=== PATIENT | male | born 1960 | race Caucasian/White ===

== ENCOUNTER 2021-12-06 17:58 | Inpatient (IN) | payer OTHER, SELFPAY ==
[2021-12-06 18:20] VITALS: BP 119/69; PULSE 94; RESP 16; TEMP 36.7; O2SAT 96
[2021-12-06] MEDS: traZODone HCL 50 MG TABLET PO (20:40)
[2021-12-06] MEDS: hydrOXYzine HCL 25 MG TABLET PO (20:40)
--- NOTE | 2021-12-07 03:02 | PC.NURSE ---
Hospitalist Colin texted at 0303 this morning for H&P consult.
--- NOTE | 2021-12-07 03:20 | PC.ADMIT ---
Pt is a 60 yo male admitted to the unit after referral from [facility] [facility] [facility] and transferred from [facility]. Pt arrived on unit at 1810 yesterday, 12/06/2021. Legal status: CV. Pt has hearing deficit and wears hearing aids. Pt current medical issue is DM type 2. Pt denies other medical issues. Pt is sober of ETOH since 09/15/2021. Denies any other substance use/abuse. Utox is negative for any substances. Denies smoking hx. States he is not a smoker. Pt states that he went to [facility] for Section 35 commitment for substance abuse tx for ETOH for 68 days. Upon discharge from there on 12/02/21 and admission [address] [facility], pt reported increased anxiety and panic d/t persistent SI to overdose on medications, stating I'd rather be than to feel this way i.e., depressed. Pt was then transferred to [facility] and evaluated by [facility] for admission. Pt did not want to go through the admission process so very little comes directly from pt, most was derived from crisis assessment. Pt presents as disheveled and slightly irritable, wanting to go to sleep but did comply with vitals and signed release of information forms. Provider clinical education manager Radha Tyler notified and orders obtained. Pt placed on 15 minute safety checks and contracts for safety on unit.
[2021-12-07 07:58] LABS: Estimated Average Glucose 203 mg/dL; Hemoglobin A1c % 8.7 %
[2021-12-07 08:08] LABS: Alanine Aminotransferase 29 U/L (0-40); Albumin Level 3.9 g/dL (3.5-5.0); Alkaline Phosphatase 118 U/L (39-117); Anion Gap 15 (12-20); Aspartate Amino Transferase 20 U/L (5-37); Bilirubin Total 0.6 mg/dL (0.0-1.0); Blood Urea Nitrogen 19 mg/dL (9-16); Calcium 9.2 mg/dL (8.4-10.2); Carbon Dioxide 24 mmol/L (22-29); Chloride 105 mmol/L (96-108); Cholesterol 177 mg/dL; Estimated Glomerular Filt Rate > 60; Glucose Fasting 205 mg/dL (60-99); HDL Cholesterol 41 mg/dL; LDL Cholesterol Calculated 110 mg/dl; Potassium 4.5 mmol/L (3.3-5.1); Sodium 139 mmol/L (135-145); Total Protein 6.6 g/dL (6.5-8.0); Triglycerides 131 mg/dL
[2021-12-07 08:19] LABS: Thyroid Stimulating Hormone 1.31 uIU/mL (0.32-4.0)
--- NOTE | 2021-12-07 08:22 | HO.PSYADMNOT ---
HPI Date of Service: 12/07/21 Chief Complaint: SI Sources of Information: patient interviewed, chart reviewed and crisis/core team assessment reviewed HPI Subjective Notes: Bedoya Warning and Conditional Voluntary Narrative: Mr. Peter is a 60 year-old male with hx of alcohol dependence, MDD, who self presented to [facility] from [facility]/respite unit from [facility] reporting suicidal ideation with plan to OD on his medications. Mr. Peter was recently sectioned 35 at [facility] and discharge from this facility on 12/02/2021 after 68 days. He was stepped down to [facility] and after being there for few hours, pt reports he had a panic attack. He was sent to [facility] respite where he continued to endorse suicidal ideation with plan to OD. Utox was negative. BAL neg. On the unit, pt presents somewhat irritable and tired. He reports [facility] has too many residents and is a very small place. He reports not feeling comfortable there. He reports he has not relapsed since he was discharge. He endorses feeling depressed, hopeless, anhedonia. He has not had episodes of what he calls panic attacks which he describes as palpitation, SOB, intense anxious mood. He does report overall anxious mood. He continues to endorse passive suicidal ideation. He reports he was not feeling suicidal while at [facility]. He reports this happened after he was discharged and brought to [facility]. He denies hx of VH/AH. He reports he has been on paxil for some years and thought it worked well for him. He denies previous suicide attempts and states this is the closest I've come to suicide attempt. He reports holding his own medications and contemplating overdose. He reports sleep is good with trazodone. Past Psychiatric History: Inpatient: 09/18/21 [facility], 08/21/21 [facility]; 04/2021 [facility] OP: none Suicide attempts: denies Past medication trials: paxil, clonidine, buspar, gabapentin Medical Evaluation Reviewed: Yes [facility] Medical History (Updated 12/08/21 @ 09:11 by Radha Tyler) Diabetes mellitus, type 2 H/O: HTN (hypertension) Surgical History (Updated 12/07/21 @ 13:25 by Arin Herbert NP) H/O hernia repair Diagnostics Vital Signs (24Hr): Vital Signs - 24 hr 12/06/21 18:20 Temperature 98.1 F Pulse Rate 94 Respiratory Rate 16 Blood Pressure 119/69 Pulse Oximetry 96 Oxygen Delivery Method Room Air Labs Results: 12/07/21 07:16 Labs: Laboratory Results - last 48 hr 12/07/21 12/07/21 07:16 07:16 Sodium 139 Potassium 4.5 Chloride 105 Carbon Dioxide 24 Anion Gap 15 BUN 19 H Creatinine 0.77 Estim Creat Clear Calc TNP Estimated GFR > 60 Fasting Glucose 205 H Estimat Average Glucose 203 Hemoglobin A1c % 8.7 Calcium 9.2 Total Bilirubin 0.6 AST 20 ALT 29 Alkaline Phosphatase 118 H Total Protein 6.6 Albumin 3.9 Triglycerides 131 Cholesterol 177 LDL Cholesterol, Calc 110 HDL Cholesterol 41 TSH 1.31 Meds/Allergies Meds Home Medications Medication Instructions Recorded Confirmed Type trazodone 150 mg tablet 150 mg PO BEDTIME 12/06/21 12/07/21 History trazodone 50 mg tablet 50 mg PO BEDTIME PRN Insomnia 12/06/21 12/07/21 History buspirone 30 mg tablet 30 mg PO BID 12/07/21 12/07/21 History clonidine HCl 0.1 mg tablet 0.1 mg PO BID 12/07/21 12/07/21 History ferrous sulfate 1 tab PO BID 12/07/21 12/07/21 History folic acid 1 mg tablet 1 mg PO DAILY 12/07/21 12/07/21 History gabapentin 300 mg PO BID 12/07/21 12/07/21 History hydroxyzine HCl 50 mg tablet 50 mg PO BEDTIME 12/07/21 12/07/21 History ibuprofen 400 mg tablet 400 mg PO Q8H PRN Pain, Moderate 12/07/21 12/07/21 History insulin detemir U-100 100 unit/mL 50 unit subcut BEDTIME 12/07/21 12/07/21 History subcutaneous solution insulin lispro 100 unit/mL 2 - 10 sliding scale dose subcut 12/07/21 12/07/21 History subcutaneous solution [facility] lisinopril 10 mg tablet 10 mg PO DAILY 12/07/21 12/07/21 History loratadine 10 mg capsule 10 mg PO DAILY 12/07/21 12/07/21 History lorazepam 1 mg tablet 1 mg PO TID PRN Anxiety 12/07/21 12/07/21 History metformin 500 mg tablet,extended 2,000 mg PO DAILY 12/07/21 12/07/21 History release 24 hr multivitamin 1 tab PO DAILY 12/07/21 12/07/21 History paroxetine HCl 40 mg PO DAILY 12/07/21 12/07/21 History Allergies Allergies Allergy/AdvReac Type Severity Reaction Status Date / Time dextromethorphan Allergy Unknown Unknown Verified 12/06/21 18:03 Mental Status Exam Mental Status Exam Narrative: Appearance: wearing hospital gown, fair hygiene in NAD Behavior:cooperative but somewhat irritable psychomotor: no agitation or retardation noted Speech:clear, normal rate/rhythm/volume, spontaneous Thought process:linear Thought content: no signs of delusions/psychosis, hopeless, irritable Mood: anxious Affect: irritable SI:passive HI:none VH/AH:none Delusions:none Insight/judgment:fair x 2. Memory/cog: alert, oriented x 3. grossly intact to conversational testing but not formally tested. Assessment & Plan Assessment & Plan (1) MDD (major depressive disorder), recurrent severe, without psychosis: Status: Acute Code(s): F33.2 - Major depressive disorder, recurrent severe without psychotic features (2) Alcohol use disorder, severe, in early remission: Status: Acute Code(s): F10.21 - Alcohol dependence, in remission Plan Mr. Peter is a 60 year-old male with hx of MDD, alcohol use disorder in early remission. Recently discharged on 12/02/2021 from [facility] after 68 days at [facility]. Stepped down to sober house, had panic atttack, which he reports he didn't feel comfortable at this place. He reports suicidal ideation with plan to OD, which he states is close to suicide attempt he has had. He has not relapsed since he was discharged from [facility]. Pt continues to endorse depression, anhedonia, anxious mood, passive SI. We discussed risks, benefits and alternative treatment options. He agrees to continue paxil, as he states it was helpful for him in past, rather than switching at this time to another antidepressant. He agrees to start abilify to boost antidepressant effect. continue clonidine, buspar for anxious mood. PLAN 1. Admit to M3, CV, 15 minutes checks for safety 2. continue paxil 40mg po daily, may titrate 3. start abilify 2mg po qhs. 4. continue gabapenting, clonidine, buspar. 5. obtain collateral information 6. aftercare planning. Patient educated on: diagnosis, medication risk/benefits and substance abuse Reason for continued inpatient stay Substantial Risk for: harm to self
[2021-12-07 09:00] VITALS: BP 118/82; PULSE 102; RESP 16; TEMP 36.8; O2SAT 97
[2021-12-07 09:38] LABS: Glucose, Whole Blood 216 mg/dL (60-115)
[2021-12-07 13:11] LABS: Glucose, Whole Blood 205 mg/dL (60-115)
--- NOTE | 2021-12-07 13:19 | HO.PM.IMCN ---
History of Present Illness Data of Consult Service Date: 12/07/21 Requesting physician: Radha Tyler Primary Care Provider: Jason Cohen MD Review of Systems Review of Systems: Denies any recent fever chills or decrease in appetite respiratory denies any shortness of breath coverage production cardiovascular denies chest pain gastrointestinal denies any dysphagia abdominal pain nausea vomiting or diarrhea genitourinary denies any dysuria frequency or hematuria musculoskeletal denies any joint pain or swelling neuropsych denies any weakness or seizures all other systems reviewed are negative [facility] Medical History (Updated 12/07/21 @ 13:28 by Arin Herbert NP) Diabetes mellitus, type 2 H/O: HTN (hypertension) Pertinent family history: No cardiac disease Surgical History (Updated 12/07/21 @ 13:25 by Arin Herbert NP) H/O hernia repair Social History Household Members: Other Household Members Other:: Mother but not allowed back. Housing: Homeless Do you presently have visiting nurse or other home services: No Patient Tobacco Use Status: Never used Tobacco Use of substances other than those prescribed or required for medical reasons: No Currently Displaying Signs/Symptoms of Drug Intoxication Withdrawal: No Any prior treatment program specific to substance use: Yes (2; 06/2021 [facility] and 10/18 - 12/18 [facility]) Have you been hit, kicked, punched, or otherwise hurt by someone within the past year? If so, by whom?: No Do you feel safe in your current relationship?: No Current Relationship Is there a partner from a previous relationship who is making you feel unsafe now?: No Are you made to feel afraid or neglected: No Advance Directives: No Advance Directives Information Provided: No Advance Directives on File: No Do you have thoughts of harming others: None Do you have a plan to hurt others: No Plan Recently lost weight without trying: Unsure How much weight loss: Unsure Nutrition Risks: Diabetes new onset/Uncontrolled Meds Allergies Allergy/AdvReac Type Severity Reaction Status Date / Time dextromethorphan Allergy Unknown Unknown Verified 12/06/21 18:03 Active Medications: Current Medications Acetaminophen (Acetaminophen 325 Mg Tablet) 650 mg PO Q6H PRN PRN Reason: Headache/Pain Mild Scale (1-3) Al Hydroxide/Mg Hydroxide (Magnesium Hydrox/Alum Hydrox 30 Ml Oral.Susp) 30 ml PO Q6H PRN PRN Reason: Heartburn/Nausea Hydroxyzine HCl (Hydroxyzine Hcl 25 Mg Tablet) 25 mg PO Q6H PRN PRN Reason: Anxiety Last Admin: 12/06/21 20:40 Dose: 25 mg Magnesium Hydroxide (Milk Of Magnesia 30 Ml Oral.Susp) 30 ml PO DAILY PRN PRN Reason: Constipation Trazodone HCl (Trazodone Hcl 50 Mg Tablet) 50 mg PO BEDTIME PRN PRN Reason: Insomnia Last Admin: 12/06/21 20:40 Dose: 50 mg Home Medications Medication Instructions Recorded Confirmed Last Taken Type trazodone 150 mg tablet 150 mg PO BEDTIME 12/06/21 12/07/21 Unknown History trazodone 50 mg tablet 50 mg PO BEDTIME PRN Insomnia 12/06/21 12/07/21 12/06/21 20:30 History 50 buspirone 30 mg tablet 30 mg PO BID 12/07/21 12/07/21 Unknown History clonidine HCl 0.1 mg tablet 0.1 mg PO BID 12/07/21 12/07/21 Unknown History ferrous sulfate 1 tab PO BID 12/07/21 12/07/21 Unknown History folic acid 1 mg tablet 1 mg PO DAILY 12/07/21 12/07/21 Unknown History gabapentin 300 mg PO BID 12/07/21 12/07/21 Unknown History hydroxyzine HCl 50 mg tablet 50 mg PO BEDTIME 12/07/21 12/07/21 12/06/21 20:30 History 25 ibuprofen 400 mg tablet 400 mg PO Q8H PRN Pain, Moderate 12/07/21 12/07/21 Unknown History insulin detemir U-100 100 unit/mL 50 unit subcut BEDTIME 12/07/21 12/07/21 Unknown History subcutaneous solution insulin lispro 100 unit/mL 2 - 10 sliding scale dose subcut 12/07/21 12/07/21 Unknown History subcutaneous solution USEASDIRECTD lisinopril 10 mg tablet 10 mg PO DAILY 12/07/21 12/07/21 Unknown History loratadine 10 mg capsule 10 mg PO DAILY 12/07/21 12/07/21 Unknown History lorazepam 1 mg tablet 1 mg PO TID PRN Anxiety 12/07/21 12/07/21 Unknown History metformin 500 mg tablet,extended 2,000 mg PO DAILY 12/07/21 12/07/21 Unknown History release 24 hr multivitamin 1 tab PO DAILY 12/07/21 12/07/21 Unknown History paroxetine HCl 40 mg PO DAILY 12/07/21 12/07/21 Unknown History Physical Exam Vital Signs and Narrative: Vital Signs: Last Vital Signs Temp 98.1 F 12/06/21 18:20 Pulse 94 12/06/21 18:20 Resp 16 12/06/21 18:20 BP 119/69 12/06/21 18:20 Pulse Ox 96 12/06/21 18:20 O2 Del Method 12/06/21 18:20 Appearing in no acute distress head is normocephalic atraumatic eyes pupils are PERRLA sclera is anicteric mouth throat mucous membranes are intact and moist lung sounds are clear to auscultation heart regular rate positive bowel sounds, abdomen is soft, nontender neuro patient is alert x3, no focal deficits cranial nerves 2-12 grossly intact without focal deficits Results Labs CBC and Chem 7: 12/07/21 07:16 Labs: Laboratory Results - last 24 hr 12/07/21 12/07/21 12/07/21 07:16 07:16 09:32 Anion Gap 15 Estim Creat Clear Calc TNP Estimated GFR > 60 POC Glucose 216 H Fasting Glucose 205 H Estimat Average Glucose 203 Hemoglobin A1c % 8.7 Calcium 9.2 Total Bilirubin 0.6 AST 20 ALT 29 Alkaline Phosphatase 118 H Total Protein 6.6 Albumin 3.9 Triglycerides 131 Cholesterol 177 LDL Cholesterol, Calc 110 HDL Cholesterol 41 TSH 1.31 12/07/21 13:05 Anion Gap Estim Creat Clear Calc Estimated GFR POC Glucose 205 H Fasting Glucose Estimat Average Glucose Hemoglobin A1c % Calcium Total Bilirubin AST ALT Alkaline Phosphatase Total Protein Albumin Triglycerides Cholesterol LDL Cholesterol, Calc HDL Cholesterol TSH Assessment and Plan (1) H/O: HTN (hypertension): Status: Acute Plan 60-year-old man admitted to Adult Psychiatry. He has no acute medical complaints at this time. Hypertension. Stable blood pressure May continue home medications Diabetes mellitus May continue home medications Encourage diabetic diet Anemia Continue iron supplementation Mental health Management as per psychiatric team
[2021-12-07] MEDS: cloNIDine HCL 0.1 MG TABLET PO ×2 (14:22→20:33)
[2021-12-07] MEDS: lisinopriL 10 MG TABLET PO (14:22)
[2021-12-07] MEDS: busPIRone HCl 10 MG TABLET 30 MG PO ×2 (14:23→20:32)
[2021-12-07] MEDS: Gabapentin 300 MG CAPSULE PO ×2 (14:23→20:32)
[2021-12-07] MEDS: metFORMIN HCl ER 500 MG TAB.ER.24H 2000 MG PO (14:23)
[2021-12-07] MEDS: LORazepam 1 MG TABLET PO ×2 (14:23→20:33)
[2021-12-07] MEDS: PARoxetine HCL 40 MG TABLET PO (15:25)
[2021-12-07 18:09] LABS: Glucose, Whole Blood 182 mg/dL (60-115)
[2021-12-07] MEDS: Insulin Lispro 100 UNIT/ML 3 ML VIAL SUBCUT ×2 (18:10→20:33)
[2021-12-07 20:21] LABS: Glucose, Whole Blood 194 mg/dL (60-115)
[2021-12-07 20:30] VITALS: BP 104/67; PULSE 108; RESP 19; TEMP 36.6; O2SAT 96
[2021-12-07] MEDS: ARIPiprazole 2 MG TABLET PO (20:32)
[2021-12-07] MEDS: hydrOXYzine HCL 25 MG TABLET PO (20:33)
[2021-12-07] MEDS: traZODone HCL 50 MG TABLET PO (20:33)
[2021-12-07] MEDS: Insulin Glargine,Hum.rec.anlog 100 UNIT/ML 10 ML VIAL 50 UNIT SUBCUT (20:34)
--- NOTE | 2021-12-08 07:26 | HO.PSYCHPN ---
Subjective Subjective Date of Service: 12/08/21 Reason For Visit: SI Interim History: Pt reports feeling less anxious, less SI thoughts. He reports fair sleep. He has been mostly in his room. minimally interactive with peers or staff. Taking medications as prescribed. Medication Compliance: Yes Side effects from medications: No Attending Groups: No Review of Systems Constitutional: Reports fatigue, Denies headache(s) and Reports lethargy Eyes: Reports no additional eye complaints Denies Normal hearing present ([place]), Denies dizziness and Denies headache(s) Cardiovascular: Denies chest pain, Denies chest pain with activity, Denies rapid heart rate, Denies lightheadedness, Denies dyspnea, Denies dyspnea on exertion and Denies orthopnea Respiratory: Denies chest congestion, Denies dyspnea and Denies dyspnea on exertion Gastrointestinal: Denies coffee ground emesis, Denies constipation, Denies dyspepsia, Denies heartburn, Denies diarrhea and Denies nausea Musculoskeletal: Reports tingling Denies Normal hearing present ([place]), Denies dizziness, Denies headache(s) and Reports tingling Endocrine: Reports fatigue Mental Status Exam Mental Status Exam Narrative: Appearance: wearing hospital gown, fair hygiene in NAD Behavior:cooperative but somewhat irritable psychomotor: no agitation or retardation noted Speech:clear, normal rate/rhythm/volume, spontaneous Thought process:linear Thought content: no signs of delusions/psychosis, hopeless, irritable Mood: anxious Affect: irritable SI:passive HI:none VH/AH:none Delusions:none Insight/judgment:fair x 2. Memory/cog: alert, oriented x 3. grossly intact to conversational testing but not formally tested. Diagnostics Vital Signs (24Hr): Vital Signs - 24 hr 12/08/21 08:00 12/08/21 20:40 Temperature 97.9 F 98.3 F Pulse Rate 82 94 Respiratory Rate 18 16 Blood Pressure 112/71 123/67 Pulse Oximetry 97 95 Oxygen Delivery Method Room Air Room Air Labs Results: 12/07/21 07:16 Labs: Laboratory Results - last 48 hr 12/07/21 12/07/21 12/07/21 07:16 07:16 09:32 Sodium 139 Potassium 4.5 Chloride 105 Carbon Dioxide 24 Anion Gap 15 BUN 19 H Creatinine 0.77 Estim Creat Clear Calc TNP Estimated GFR > 60 POC Glucose 216 H Fasting Glucose 205 H Estimat Average Glucose 203 Hemoglobin A1c % 8.7 Calcium 9.2 Total Bilirubin 0.6 AST 20 ALT 29 Alkaline Phosphatase 118 H Total Protein 6.6 Albumin 3.9 Triglycerides 131 Cholesterol 177 LDL Cholesterol, Calc 110 HDL Cholesterol 41 TSH 1.31 12/07/21 12/07/21 12/07/21 13:05 17:59 20:17 Sodium Potassium Chloride Carbon Dioxide Anion Gap BUN Creatinine Estim Creat Clear Calc Estimated GFR POC Glucose 205 H 182 H 194 H Fasting Glucose Estimat Average Glucose Hemoglobin A1c % Calcium Total Bilirubin AST ALT Alkaline Phosphatase Total Protein Albumin Triglycerides Cholesterol LDL Cholesterol, Calc HDL Cholesterol TSH 12/08/21 12/08/21 12/08/21 08:57 13:08 17:45 Sodium Potassium Chloride Carbon Dioxide Anion Gap BUN Creatinine Estim Creat Clear Calc Estimated GFR POC Glucose 178 H 152 H 192 H Fasting Glucose Estimat Average Glucose Hemoglobin A1c % Calcium Total Bilirubin AST ALT Alkaline Phosphatase Total Protein Albumin Triglycerides Cholesterol LDL Cholesterol, Calc HDL Cholesterol TSH 12/08/21 20:28 Sodium Potassium Chloride Carbon Dioxide Anion Gap BUN Creatinine Estim Creat Clear Calc Estimated GFR POC Glucose 272 H Fasting Glucose Estimat Average Glucose Hemoglobin A1c % Calcium Total Bilirubin AST ALT Alkaline Phosphatase Total Protein Albumin Triglycerides Cholesterol LDL Cholesterol, Calc HDL Cholesterol TSH Medications Medications Current Medications Acetaminophen (Acetaminophen 325 Mg Tablet) 650 mg PO Q6H PRN PRN Reason: Headache/Pain Mild Scale (1-3) Al Hydroxide/Mg Hydroxide (Magnesium Hydrox/Alum Hydrox 30 Ml Oral.Susp) 30 ml PO Q6H PRN PRN Reason: Heartburn/Nausea Aripiprazole (Aripiprazole 2 Mg Tablet) 2 mg PO BEDTIME [facility] Last Admin: 12/08/21 20:40 Dose: 2 mg Buspirone HCl (Buspirone Hcl 10 Mg Tablet) 30 mg PO BID [facility] Last Admin: 12/08/21 20:39 Dose: 30 mg Clonidine HCl (Clonidine Hcl 0.1 Mg Tablet) 0.1 mg PO BID [facility]; Protocol Last Admin: 12/08/21 20:40 Dose: 0.1 mg Ferrous Sulfate (Ferrous Sulfate 324 Mg Tablet.Dr) 324 mg PO DAILY [facility] Last Admin: 12/08/21 08:34 Dose: 324 mg Gabapentin (Gabapentin 300 Mg Capsule) 300 mg PO BID [facility] Last Admin: 12/08/21 20:40 Dose: 300 mg Hydroxyzine HCl (Hydroxyzine Hcl 25 Mg Tablet) 25 mg PO Q6H PRN PRN Reason: Anxiety Last Admin: 12/07/21 20:33 Dose: 25 mg Insulin Glargine (Insulin Glargine,Hum.Rec.Anlog 100 Unit/Ml 10 Ml Vial) 50 unit SUBCUT BEDTIME [facility] Last Admin: 12/08/21 20:42 Dose: 50 unit Insulin Human Lispro (Insulin Lispro 100 Unit/Ml 3 Ml Vial) 0 unit SUBCUT QIDACHS [facility]; Protocol Last Admin: 12/08/21 20:43 Dose: 6 unit Lisinopril (Lisinopril 10 Mg Tablet) 10 mg PO DAILY [facility]; Protocol Last Admin: 12/08/21 08:34 Dose: 10 mg Lorazepam (Lorazepam 1 Mg Tablet) 1 mg PO Q6H PRN PRN Reason: Anxiety Last Admin: 12/08/21 20:46 Dose: 1 mg Magnesium Hydroxide (Milk Of Magnesia 30 Ml Oral.Susp) 30 ml PO DAILY PRN PRN Reason: Constipation Metformin HCl (Metformin Hcl Er 500 Mg Tab.Er.24h) 2,000 mg PO DAILY [facility] Last Admin: 12/08/21 08:34 Dose: 2,000 mg Paroxetine HCl (Paroxetine Hcl 40 Mg Tablet) 40 mg PO DAILY [facility] Last Admin: 12/08/21 08:34 Dose: 40 mg Trazodone HCl (Trazodone Hcl 50 Mg Tablet) 50 mg PO BEDTIME PRN PRN Reason: Insomnia Last Admin: 12/08/21 20:41 Dose: 50 mg Allergies Allergies Allergy/AdvReac Type Severity Reaction Status Date / Time dextromethorphan Allergy Unknown Unknown Verified 12/06/21 18:03 Assessment & Plan Assessment & Plan (1) MDD (major depressive disorder), recurrent severe, without psychosis: Status: Acute Code(s): F33.2 - Major depressive disorder, recurrent severe without psychotic features (2) Alcohol use disorder, severe, in early remission: Status: Acute Code(s): F10.21 - Alcohol dependence, in remission Plan Mr. Peter is a 60 year-old male with hx of MDD, alcohol use disorder in early remission. Recently discharged on 12/02/2021 from [place] [facility] after 68 days at [facility]. Stepped down to sober house, had panic atttack, which he reports he didn't feel comfortable at this place. He reports suicidal ideation with plan to OD, which he states is close to suicide attempt he has had. He has not relapsed since he was discharged from [facility]. Pt continues to endorse depression, anhedonia, anxious mood, passive SI. We discussed risks, benefits and alternative treatment options. He agrees to continue paxil, as he states it was helpful for him in past, rather than switching at this time to another antidepressant. He agrees to start abilify to boost antidepressant effect. continue clonidine, buspar for anxious mood. PLAN 1. Admit to M3, CV, 15 minutes checks for safety 2. continue paxil 40mg po daily, may titrate 3. start abilify 2mg po qhs. 4. continue gabapenting, clonidine, buspar. 5. obtain collateral information 6. aftercare planning. 12/08 continue tx plan. I spent minutes with the patient and/or on the patient floor today, greater than?50% of which was spent counseling/coordinating care. Reason for contiued inpatient stay Substantial Risk for: harm to self
[2021-12-08 08:00] VITALS: BP 112/71; PULSE 82; RESP 18; TEMP 36.6; O2SAT 97
[2021-12-08] MEDS: Gabapentin 300 MG CAPSULE PO ×2 (08:34→20:40)
[2021-12-08] MEDS: PARoxetine HCL 40 MG TABLET PO (08:34)
[2021-12-08] MEDS: Ferrous Sulfate 324 MG TABLET.DR PO (08:34)
[2021-12-08] MEDS: busPIRone HCl 10 MG TABLET 30 MG PO ×2 (08:34→20:39)
[2021-12-08] MEDS: metFORMIN HCl ER 500 MG TAB.ER.24H 2000 MG PO (08:34)
[2021-12-08] MEDS: cloNIDine HCL 0.1 MG TABLET PO ×2 (08:34→20:40)
[2021-12-08] MEDS: lisinopriL 10 MG TABLET PO (08:34)
[2021-12-08] MEDS: LORazepam 1 MG TABLET PO ×2 (08:35→20:46)
[2021-12-08 09:03] LABS: Glucose, Whole Blood 178 mg/dL (60-115)
[2021-12-08] MEDS: Insulin Lispro 100 UNIT/ML 3 ML VIAL SUBCUT ×2 (09:22→20:43)
[2021-12-08 13:12] LABS: Glucose, Whole Blood 152 mg/dL (60-115)
[2021-12-08 17:49] LABS: Glucose, Whole Blood 192 mg/dL (60-115)
[2021-12-08 20:32] LABS: Glucose, Whole Blood 272 mg/dL (60-115)
[2021-12-08 20:40] VITALS: BP 123/67; PULSE 94; RESP 16; TEMP 36.8; O2SAT 95
[2021-12-08] MEDS: ARIPiprazole 2 MG TABLET PO (20:40)
[2021-12-08] MEDS: traZODone HCL 50 MG TABLET PO (20:41)
[2021-12-08] MEDS: Insulin Glargine,Hum.rec.anlog 100 UNIT/ML 10 ML VIAL 50 UNIT SUBCUT (20:42)
[2021-12-09 09:01] LABS: Folate > 20.0 ng/mL (> or = 4.0); Vitamin B12 752 pg/mL (200-900)
[2021-12-09 09:02] VITALS: BP 119/77; PULSE 81; RESP 16; TEMP 36.3; O2SAT 98
[2021-12-09 09:02] LABS: Glucose, Whole Blood 152 mg/dL (60-115)
[2021-12-09] MEDS: Insulin Lispro 100 UNIT/ML 3 ML VIAL SUBCUT ×2 (09:17→20:38)
[2021-12-09] MEDS: busPIRone HCl 10 MG TABLET 30 MG PO ×2 (09:18→20:40)
[2021-12-09] MEDS: metFORMIN HCl ER 500 MG TAB.ER.24H 2000 MG PO (09:18)
[2021-12-09] MEDS: PARoxetine HCL 40 MG TABLET PO (09:19)
[2021-12-09] MEDS: LORazepam 1 MG TABLET PO ×2 (09:19→20:42)
[2021-12-09] MEDS: Ferrous Sulfate 324 MG TABLET.DR PO (09:20)
[2021-12-09] MEDS: cloNIDine HCL 0.1 MG TABLET PO ×2 (09:20→20:40)
[2021-12-09] MEDS: lisinopriL 10 MG TABLET PO (09:20)
[2021-12-09] MEDS: Gabapentin 300 MG CAPSULE PO ×2 (09:20→20:40)
[2021-12-09 13:24] LABS: Glucose, Whole Blood 112 mg/dL (60-115)
--- NOTE | 2021-12-09 15:16 | HO.PSYCHPN ---
Subjective Subjective Date of Service: 12/09/21 Reason For Visit: SI Interim History: calm, cooperative. somewhat teary, appears anxious. reports daily SI connected to not knowing [his] future, which seems connected to his homeless state. he reports his mother would not take him back into her house, about which he is surprised. he went to a sober house and had 3 roommates and the situation scared him and he became suicidal, holding his meds in his hand about to overdose. then he stopped himself and called for help and was ultimately admitted to the hospital. continues with SI due to his anxiety. pursuing programs at [employer], maybe. agreeable to increase abilify to 4 mg at [facility] for anti-depressant augmentation. per staff, sleeping well. ativan, traz PRNs. somewhat irritable. Mental Status Exam Mental Status Exam Narrative: Appearance: street clothes, fair hygiene in NAD Behavior:cooperative psychomotor: no agitation or retardation noted Speech:clear, normal rate/rhythm/volume, spontaneous Thought process:linear Thought content: no signs of delusions/psychosis Mood: anxious Affect: normo-intense, min-labile (teary) SI:passive HI:none VH/AH:none Delusions:none Insight/judgment:fair x 2. Memory/cog: alert, oriented x 3. grossly intact to conversational testing but not formally tested. Diagnostics Vital Signs (24Hr): Vital Signs - 24 hr 12/08/21 20:40 12/09/21 09:02 Temperature 98.3 F 97.3 F Pulse Rate 94 81 Respiratory Rate 16 16 Blood Pressure 123/67 119/77 Pulse Oximetry 95 98 Oxygen Delivery Method Room Air Room Air Labs Results: 12/07/21 07:16 Labs: Laboratory Results - last 48 hr 12/07/21 12/07/21 12/07/21 07:16 17:59 20:17 POC Glucose 182 H 194 H Vitamin B12 752 Folate > 20.0 12/08/21 12/08/21 12/08/21 08:57 13:08 17:45 POC Glucose 178 H 152 H 192 H Vitamin B12 Folate 12/08/21 12/09/21 12/09/21 20:28 08:59 13:20 POC Glucose 272 H 152 H 112 Vitamin B12 Folate Medications Medications Current Medications Acetaminophen (Acetaminophen 325 Mg Tablet) 650 mg PO Q6H PRN PRN Reason: Headache/Pain Mild Scale (1-3) Al Hydroxide/Mg Hydroxide (Magnesium Hydrox/Alum Hydrox 30 Ml Oral.Susp) 30 ml PO Q6H PRN PRN Reason: Heartburn/Nausea Aripiprazole (Aripiprazole 2 Mg Tablet) 2 mg PO BEDTIME [facility] Last Admin: 12/08/21 20:40 Dose: 2 mg Buspirone HCl (Buspirone Hcl 10 Mg Tablet) 30 mg PO BID [facility] Last Admin: 12/09/21 09:18 Dose: 30 mg Clonidine HCl (Clonidine Hcl 0.1 Mg Tablet) 0.1 mg PO BID [facility]; Protocol Last Admin: 12/09/21 09:20 Dose: 0.1 mg Ferrous Sulfate (Ferrous Sulfate 324 Mg Tablet.Dr) 324 mg PO DAILY [facility] Last Admin: 12/09/21 09:20 Dose: 324 mg Gabapentin (Gabapentin 300 Mg Capsule) 300 mg PO BID [facility] Last Admin: 12/09/21 09:20 Dose: 300 mg Hydroxyzine HCl (Hydroxyzine Hcl 25 Mg Tablet) 25 mg PO Q6H PRN PRN Reason: Anxiety Last Admin: 12/07/21 20:33 Dose: 25 mg Insulin Glargine (Insulin Glargine,Hum.Rec.Anlog 100 Unit/Ml 10 Ml Vial) 50 unit SUBCUT BEDTIME [facility] Last Admin: 12/08/21 20:42 Dose: 50 unit Insulin Human Lispro (Insulin Lispro 100 Unit/Ml 3 Ml Vial) 0 unit SUBCUT QIDACHS [facility]; Protocol Last Admin: 12/09/21 13:28 Dose: Not Given Lisinopril (Lisinopril 10 Mg Tablet) 10 mg PO DAILY [facility]; Protocol Last Admin: 12/09/21 09:20 Dose: 10 mg Lorazepam (Lorazepam 1 Mg Tablet) 1 mg PO Q6H PRN PRN Reason: Anxiety Last Admin: 12/09/21 09:19 Dose: 1 mg Magnesium Hydroxide (Milk Of Magnesia 30 Ml Oral.Susp) 30 ml PO DAILY PRN PRN Reason: Constipation Metformin HCl (Metformin Hcl Er 500 Mg Tab.Er.24h) 2,000 mg PO DAILY [facility] Last Admin: 12/09/21 09:18 Dose: 2,000 mg Paroxetine HCl (Paroxetine Hcl 40 Mg Tablet) 40 mg PO DAILY [facility] Last Admin: 12/09/21 09:19 Dose: 40 mg Trazodone HCl (Trazodone Hcl 50 Mg Tablet) 150 mg PO BEDTIME [facility] Allergies Allergies Allergy/AdvReac Type Severity Reaction Status Date / Time dextromethorphan Allergy Unknown Unknown Verified 12/06/21 18:03 Assessment & Plan Assessment & Plan (1) MDD (major depressive disorder), recurrent severe, without psychosis: Status: Acute Code(s): F33.2 - Major depressive disorder, recurrent severe without psychotic features (2) Alcohol use disorder, severe, in early remission: Status: Acute Code(s): F10.21 - Alcohol dependence, in remission Plan Mr. Peter is a 60 year-old male with hx of MDD, alcohol use disorder in early remission. Recently discharged on 12/02/2021 from [place] [id number] after 68 days at [place]. Stepped down to sober house, had panic attack, which he reports he didn't feel comfortable at this place. He reports suicidal ideation with plan to OD, which he states is close to suicide attempt he has had. He has not relapsed since he was discharged from [place]. Pt continues to endorse depression, anhedonia, anxious mood, passive SI. We discussed risks, benefits and alternative treatment options. He agrees to continue paxil, as he states it was helpful for him in past, rather than switching at this time to another antidepressant. He agrees to start abilify to boost antidepressant effect. continue clonidine, buspar for anxious mood. PLAN 1. Admit to M3, CV, 15 minutes checks for safety 2. continue paxil 40mg po daily, may titrate 3. start abilify 2mg po qhs 12/07. abilify increased to 4 mg QHS as of 12/09. 4. continue gabapentin, clonidine, buspar. 5. obtain collateral information 6. aftercare planning. 12/08: continue tx plan. 12/09: abilify increased to 4 mg QHS as of 12/09. I spent __25____ minutes with the patient and/or on the patient floor today, greater than?50% of which was spent counseling/coordinating care. Reason for contiued inpatient stay Substantial Risk for: harm to self, inability to function and rapid decompensation
--- NOTE | 2021-12-09 16:13 | MHC.CLN ---
NUTRITION DIET CHANGED FROM REGULAR TO DIABETIC 1999 [facility]. DX DM AND TAKES INSULIN.
[2021-12-09 17:55] LABS: Glucose, Whole Blood 88 mg/dL (60-115)
[2021-12-09 20:27] LABS: Glucose, Whole Blood 248 mg/dL (60-115)
[2021-12-09] MEDS: Insulin Glargine,Hum.rec.anlog 100 UNIT/ML 10 ML VIAL 50 UNIT SUBCUT (20:37)
[2021-12-09 20:40] VITALS: BP 130/78; PULSE 97; RESP 16; TEMP 36.6; O2SAT 96
[2021-12-09] MEDS: traZODone HCL 50 MG TABLET 150 MG PO (20:41)
[2021-12-09] MEDS: ARIPiprazole 2 MG TABLET 4 MG PO (20:41)
[2021-12-10 09:00] VITALS: BP 122/80; PULSE 84; RESP 16; TEMP 36.3; O2SAT 97
[2021-12-10 09:24] LABS: Glucose, Whole Blood 153 mg/dL (60-115)
[2021-12-10] MEDS: busPIRone HCl 10 MG TABLET 30 MG PO ×2 (09:31→20:32)
[2021-12-10] MEDS: Ferrous Sulfate 324 MG TABLET.DR PO (09:32)
[2021-12-10] MEDS: metFORMIN HCl ER 500 MG TAB.ER.24H 2000 MG PO (09:32)
[2021-12-10] MEDS: Gabapentin 300 MG CAPSULE PO (09:32)
[2021-12-10] MEDS: PARoxetine HCL 40 MG TABLET PO (09:32)
[2021-12-10] MEDS: cloNIDine HCL 0.1 MG TABLET PO ×2 (09:38→20:31)
[2021-12-10] MEDS: lisinopriL 10 MG TABLET PO (09:38)
[2021-12-10 13:03] LABS: Glucose, Whole Blood 217 mg/dL (60-115)
[2021-12-10] MEDS: hydrOXYzine HCL 25 MG TABLET PO ×2 (13:05→20:31)
--- NOTE | 2021-12-10 14:51 | HO.PSYCHPN ---
Subjective Subjective Date of Service: 12/10/21 Reason For Visit: SI Interim History: pt reports he gets the vivitrol shot, last one week ago today, per his report. amenable to increase in abilify to 6 mg tonight and gabapentin to 1200 mg daily. he reports ongoing numbness and paresthesias in his feet B/L. c/o feeling nervous, panicky, shaking. poor sleep 2/2 snoring roommate. informs pt ativan will be DCed. per staff, anx/dep 03/08. some difficulty sleeping. POC 152, 112, 80, 248. slept late this morning. Mental Status Exam Mental Status Exam Narrative: Appearance: street clothes, fair hygiene in NAD Behavior:cooperative psychomotor: no agitation or retardation noted Speech:clear, normal rate/rhythm/volume, spontaneous Thought process:linear Thought content: no signs of delusions/psychosis Mood: nervous, panicky Affect: normo-intense, non-labile SI:passive HI:none expressed VH/AH:none expressed Delusions:none expressed Insight/judgment:fair x 2. Memory/cog: alert, oriented x 3. grossly intact to conversational testing but not formally tested. Diagnostics Vital Signs (24Hr): Vital Signs - 24 hr 12/09/21 20:40 12/10/21 09:00 Temperature 97.8 F 97.4 F Pulse Rate 97 84 Respiratory Rate 16 16 Blood Pressure 130/78 122/80 Pulse Oximetry 96 97 Oxygen Delivery Method Room Air Room Air Labs Results: 12/07/21 07:16 Labs: Laboratory Results - last 48 hr 12/07/21 12/08/21 12/08/21 07:16 17:45 20:28 POC Glucose 192 H 272 H Vitamin B12 752 Folate > 20.0 12/09/21 12/09/21 12/09/21 08:59 13:20 17:51 POC Glucose 152 H 112 88 Vitamin B12 Folate 12/09/21 12/10/21 12/10/21 20:22 09:20 12:57 POC Glucose 248 H 153 H 217 H Vitamin B12 Folate Medications Medications Current Medications Acetaminophen (Acetaminophen 325 Mg Tablet) 650 mg PO Q6H PRN PRN Reason: Headache/Pain Mild Scale (1-3) Al Hydroxide/Mg Hydroxide (Magnesium Hydrox/Alum Hydrox 30 Ml Oral.Susp) 30 ml PO Q6H PRN PRN Reason: Heartburn/Nausea Aripiprazole (Aripiprazole 2 Mg Tablet) 6 mg PO BEDTIME [facility] Buspirone HCl (Buspirone Hcl 10 Mg Tablet) 30 mg PO BID [facility] Last Admin: 12/10/21 09:31 Dose: 30 mg Clonidine HCl (Clonidine Hcl 0.1 Mg Tablet) 0.1 mg PO BID [facility]; Protocol Last Admin: 12/10/21 09:38 Dose: 0.1 mg Ferrous Sulfate (Ferrous Sulfate 324 Mg Tablet.Dr) 324 mg PO DAILY [facility] Last Admin: 12/10/21 09:32 Dose: 324 mg Gabapentin (Gabapentin 400 Mg Capsule) 400 mg PO TID [facility] Hydroxyzine HCl (Hydroxyzine Hcl 25 Mg Tablet) 25 mg PO Q6H PRN PRN Reason: Anxiety Last Admin: 12/10/21 13:05 Dose: 25 mg Insulin Glargine (Insulin Glargine,Hum.Rec.Anlog 100 Unit/Ml 10 Ml Vial) 50 unit SUBCUT BEDTIME [facility] Last Admin: 12/09/21 20:37 Dose: 50 unit Insulin Human Lispro (Insulin Lispro 100 Unit/Ml 3 Ml Vial) 0 unit SUBCUT QIDACHS [facility]; Protocol Last Admin: 12/10/21 13:06 Dose: Not Given Lisinopril (Lisinopril 10 Mg Tablet) 10 mg PO DAILY [facility]; Protocol Last Admin: 12/10/21 09:38 Dose: 10 mg Magnesium Hydroxide (Milk Of Magnesia 30 Ml Oral.Susp) 30 ml PO DAILY PRN PRN Reason: Constipation Metformin HCl (Metformin Hcl Er 500 Mg Tab.Er.24h) 2,000 mg PO DAILY [facility] Last Admin: 12/10/21 09:32 Dose: 2,000 mg Paroxetine HCl (Paroxetine Hcl 40 Mg Tablet) 40 mg PO DAILY [facility] Last Admin: 12/10/21 09:32 Dose: 40 mg Trazodone HCl (Trazodone Hcl 50 Mg Tablet) 150 mg PO BEDTIME [facility] Last Admin: 12/09/21 20:41 Dose: 150 mg Allergies Allergies Allergy/AdvReac Type Severity Reaction Status Date / Time dextromethorphan Allergy Unknown Unknown Verified 12/06/21 18:03 Assessment & Plan Assessment & Plan (1) MDD (major depressive disorder), recurrent severe, without psychosis: Status: Acute Code(s): F33.2 - Major depressive disorder, recurrent severe without psychotic features (2) Alcohol use disorder, severe, in early remission: Status: Acute Code(s): F10.21 - Alcohol dependence, in remission Plan Mr. Peter is a 60 year-old male with hx of MDD, alcohol use disorder in early remission. Recently discharged on 12/02/2021 [facility] [place] [facility] after 68 days at [place]. Stepped down to sober house, had panic attack, which he reports he didn't feel comfortable at this place. He reports suicidal ideation with plan to OD, which he states is close to suicide attempt he has had. He has not relapsed since he was discharged from [place]. Pt continues to endorse depression, anhedonia, anxious mood, passive SI. We discussed risks, benefits and alternative treatment options. He agrees to continue paxil, as he states it was helpful for him in past, rather than switching at this time to another antidepressant. He agrees to start abilify to boost antidepressant effect. continue clonidine, buspar for anxious mood. PLAN 1. Admit to M3, CV, 15 minutes checks for safety 2. continue paxil 40mg po daily, may titrate 3. start abilify 2mg po qhs 12/07. abilify increased to 4 mg QHS as of 12/09. 4. continue gabapentin, clonidine, buspar. 5. obtain collateral information 6. aftercare planning. 12/08: continue tx plan. 12/09: abilify increased to 4 mg QHS as of 12/09. 12/10: abilify increased to 6 mg as of 12/10. gabapentin increased from 300 BID to 400 TID as of 12/10. ativan DCed as of 12/10. I spent ___25___ minutes with the patient and/or on the patient floor today, greater than?50% of which was spent counseling/coordinating care. Reason for contiued inpatient stay Substantial Risk for: harm to self, inability to function and rapid decompensation
[2021-12-10] MEDS: Gabapentin 400 MG CAPSULE PO ×2 (15:54→20:32)
[2021-12-10 17:52] LABS: Glucose, Whole Blood 129 mg/dL (60-115)
[2021-12-10 20:15] VITALS: BP 125/69; PULSE 86; RESP 18; TEMP 36.6; O2SAT 97
[2021-12-10 20:23] LABS: Glucose, Whole Blood 201 mg/dL (60-115)
[2021-12-10] MEDS: traZODone HCL 50 MG TABLET 150 MG PO (20:32)
[2021-12-10] MEDS: ARIPiprazole 2 MG TABLET 6 MG PO (20:32)
[2021-12-10] MEDS: Insulin Glargine,Hum.rec.anlog 100 UNIT/ML 10 ML VIAL 50 UNIT SUBCUT (20:33)
[2021-12-10] MEDS: Insulin Lispro 100 UNIT/ML 3 ML VIAL SUBCUT (20:33)
[2021-12-11 08:00] VITALS: BP 128/81; PULSE 70; RESP 16; TEMP 36.5; O2SAT 100
[2021-12-11 08:52] LABS: Glucose, Whole Blood 141 mg/dL (60-115)
[2021-12-11] MEDS: metFORMIN HCl ER 500 MG TAB.ER.24H 2000 MG PO (08:57)
[2021-12-11] MEDS: busPIRone HCl 10 MG TABLET 30 MG PO ×2 (08:57→21:28)
[2021-12-11] MEDS: lisinopriL 10 MG TABLET PO (08:58)
[2021-12-11] MEDS: Gabapentin 400 MG CAPSULE PO ×3 (08:58→21:28)
[2021-12-11] MEDS: cloNIDine HCL 0.1 MG TABLET PO ×3 (08:59→21:29)
[2021-12-11] MEDS: PARoxetine HCL 40 MG TABLET PO (08:59)
[2021-12-11] MEDS: Ferrous Sulfate 324 MG TABLET.DR PO (08:59)
[2021-12-11 13:05] LABS: Glucose, Whole Blood 202 mg/dL (60-115)
--- NOTE | 2021-12-11 13:37 | P.PNPSI_ITS ---
Subjective Subjective Date of Service: 12/11/21 Reason For Visit: SI Interim History: found sleeping in bed. reports feeling a little sleepy after morning medications, perhaps due to increase in gabapentin dosing yesterday. aware it may take several days to get used to the dose escalation. states he slept better last night than he had been before. anxiety a little better, feels he is doing better overall. per staff, anx and dep 9/10. stressed about work and housing. intermittent SI yesterday. visible, attended some groups. [facility]. Mental Status Exam Mental Status Exam Narrative: Appearance: street clothes, fair hygiene in NAD Behavior:cooperative psychomotor: no agitation or retardation noted Speech:clear, normal rate/rhythm/volume, spontaneous Thought process:linear Thought content: no signs of delusions/psychosis Mood: doing better. anxiety a little better. Affect: normo-intense, non-labile SI:none expressed HI:none expressed VH/AH:none expressed Delusions:none expressed Insight/judgment:fair x 2. Memory/cog: alert, oriented x 3. grossly intact to conversational testing but not formally tested. Diagnostics Vital Signs (24Hr): Vital Signs - 24 hr 12/10/21 20:15 12/11/21 08:00 Temperature 97.8 F 97.7 F Pulse Rate 86 70 Respiratory Rate 18 16 Blood Pressure 125/69 128/81 Pulse Oximetry 97 100 Oxygen Delivery Method Room Air Room Air Labs Results: 12/07/21 07:16 Labs: Laboratory Results - last 48 hr 12/09/21 12/09/21 12/10/21 17:51 20:22 09:20 POC Glucose 88 248 H 153 H 12/10/21 12/10/21 12/10/21 12:57 17:47 20:19 POC Glucose 217 H 129 H 201 H 12/11/21 12/11/21 08:49 13:01 POC Glucose 141 H 202 H Medications Medications Current Medications Acetaminophen (Acetaminophen 325 Mg Tablet) 650 mg PO Q6H PRN PRN Reason: Headache/Pain Mild Scale (1-3) Al Hydroxide/Mg Hydroxide (Magnesium Hydrox/Alum Hydrox 30 Ml Oral.Susp) 30 ml PO Q6H PRN PRN Reason: Heartburn/Nausea Aripiprazole (Aripiprazole 2 Mg Tablet) 6 mg PO BEDTIME [facility] Last Admin: 12/10/21 20:32 Dose: 6 mg Buspirone HCl (Buspirone Hcl 10 Mg Tablet) 30 mg PO BID [facility] Last Admin: 12/11/21 08:57 Dose: 30 mg Clonidine HCl (Clonidine Hcl 0.1 Mg Tablet) 0.1 mg PO BID [facility]; Protocol Last Admin: 12/11/21 08:59 Dose: 0.1 mg Ferrous Sulfate (Ferrous Sulfate 324 Mg Tablet.Dr) 324 mg PO DAILY [facility] Last Admin: 12/11/21 08:59 Dose: 324 mg Gabapentin (Gabapentin 400 Mg Capsule) 400 mg PO TID [facility] Last Admin: 12/11/21 08:58 Dose: 400 mg Hydroxyzine HCl (Hydroxyzine Hcl 25 Mg Tablet) 25 mg PO Q6H PRN PRN Reason: Anxiety Last Admin: 12/10/21 20:31 Dose: 25 mg Insulin Glargine (Insulin Glargine,Hum.Rec.Anlog 100 Unit/Ml 10 Ml Vial) 50 unit SUBCUT BEDTIME [facility] Last Admin: 12/10/21 20:33 Dose: 50 unit Insulin Human Lispro (Insulin Lispro 100 Unit/Ml 3 Ml Vial) 0 unit SUBCUT QIDACHS [facility]; Protocol Last Admin: 12/11/21 13:25 Dose: Not Given Lisinopril (Lisinopril 10 Mg Tablet) 10 mg PO DAILY [facility]; Protocol Last Admin: 12/11/21 08:58 Dose: 10 mg Magnesium Hydroxide (Milk Of Magnesia 30 Ml Oral.Susp) 30 ml PO DAILY PRN PRN Reason: Constipation Metformin HCl (Metformin Hcl Er 500 Mg Tab.Er.24h) 2,000 mg PO DAILY [facility] Last Admin: 12/11/21 08:57 Dose: 2,000 mg Paroxetine HCl (Paroxetine Hcl 40 Mg Tablet) 40 mg PO DAILY [facility] Last Admin: 12/11/21 08:59 Dose: 40 mg Trazodone HCl (Trazodone Hcl 50 Mg Tablet) 150 mg PO BEDTIME [facility] Last Admin: 12/10/21 20:32 Dose: 150 mg Allergies Allergies Allergy/AdvReac Type Severity Reaction Status Date / Time dextromethorphan Allergy Unknown Unknown Verified 12/06/21 18:03 Assessment & Plan Assessment & Plan (1) MDD (major depressive disorder), recurrent severe, without psychosis: Status: Acute Code(s): F33.2 - Major depressive disorder, recurrent severe without psychotic features (2) Alcohol use disorder, severe, in early remission: Status: Acute Code(s): F10.21 - Alcohol dependence, in remission Plan Mr. Peter is a 60 year-old male with hx of MDD, alcohol use disorder in early remission. Recently discharged on 12/02/[facility]21 [facility] 68 days at [place]. Stepped down to sober house, had panic attack, which he reports he didn't feel comfortable at this place. He reports suicidal ideation with plan to OD, which he states is close to suicide attempt he has had. He has not relapsed since he was discharged from [place]. Pt continues to endorse depression, anhedonia, anxious mood, passive SI. We discussed risks, benefits and alternative treatment options. He agrees to continue paxil, as he states it was helpful for him in past, rather than switching at this time to another antidepressant. He agrees to start abilify to boost antidepressant effect. continue clonidine, buspar for anxious mood. PLAN 1. Admit to M3, CV, 15 minutes checks for safety 2. continue paxil 40mg po daily, may titrate 3. start abilify 2mg po qhs 12/07. abilify increased to 4 mg QHS as of 12/09. 4. continue gabapentin, clonidine, buspar. 5. obtain collateral information 6. aftercare planning. 12/08: continue tx plan. 12/09: abilify increased to 4 mg QHS as of 12/09. 12/10: abilify increased to 6 mg as of 12/10. gabapentin increased from 300 BID to 400 TID as of 12/10. ativan DCed as of 12/10. 12/11: a bit sleepier today. [facility] I spent ___25___ minutes with the patient and/or on the patient floor today, greater than?50% of which was spent counseling/coordinating care. Reason for contiued inpatient stay Substantial Risk for: harm to self, inability to function and rapid de compensation
[2021-12-11 14:34] LABS: COVID-19 Test Negative (Negative)
[2021-12-11] MEDS: hydrOXYzine HCL 25 MG TABLET PO (15:08)
[2021-12-11 16:56] LABS: Glucose, Whole Blood 132 mg/dL (60-115)
[2021-12-11 17:25] VITALS: BP 116/66; PULSE 82
[2021-12-11 21:15] VITALS: BP 106/68; PULSE 86; RESP 18; TEMP 36.4; O2SAT 97
[2021-12-11] MEDS: ARIPiprazole 2 MG TABLET 6 MG PO (21:28)
[2021-12-11] MEDS: traZODone HCL 50 MG TABLET 150 MG PO (21:28)
[2021-12-11 21:30] LABS: Glucose, Whole Blood 266 mg/dL (60-115)
[2021-12-11] MEDS: Insulin Lispro 100 UNIT/ML 3 ML VIAL SUBCUT (21:32)
[2021-12-11] MEDS: Insulin Glargine,Hum.rec.anlog 100 UNIT/ML 10 ML VIAL 50 UNIT SUBCUT (21:32)
[2021-12-12 06:00] VITALS: BP 116/69; PULSE 82; RESP 18; TEMP 36.8; O2SAT 98
[2021-12-12 08:44] LABS: Glucose, Whole Blood 145 mg/dL (60-115)
--- NOTE | 2021-12-12 09:15 | PC.NURSE ---
Nurse to nurse report called to Karl at [facility] respite in [place].
[2021-12-12] MEDS: cloNIDine HCL 0.1 MG TABLET PO (09:27)
[2021-12-12] MEDS: metFORMIN HCl ER 500 MG TAB.ER.24H 2000 MG PO (09:27)
[2021-12-12] MEDS: busPIRone HCl 10 MG TABLET 30 MG PO (09:27)
[2021-12-12] MEDS: Gabapentin 400 MG CAPSULE PO (09:27)
[2021-12-12] MEDS: lisinopriL 10 MG TABLET PO (09:28)
[2021-12-12] MEDS: Ferrous Sulfate 324 MG TABLET.DR PO (09:28)
[2021-12-12] MEDS: PARoxetine HCL 40 MG TABLET PO (09:28)
--- NOTE | 2021-12-12 11:47 | PM.PSYDC ---
DS: Providers Provider Date of Service: 12/12/21 Date of admission: 12/06/21 17:58 Primary care physician: Jason Cohen MD Consults: 12/06/21 18:03 Consult to Hospitalist Routine Consulting Provider: Hospitalist Reason For Exam: routine DS: Diagnosis Discharge Diagnosis (1) MDD (major depressive disorder), recurrent severe, without psychosis: Status: Acute (2) Alcohol use disorder, severe, in early remission: Status: Acute DS: Medications Discharge Medications Home Medications: Home Medications Medication Instructions Recorded Confirmed ibuprofen 400 mg tablet 400 mg PO Q8H PRN Pain, Moderate 12/07/21 12/07/21 Previous Rx's Medication Instructions Recorded aripiprazole 2 mg tablet (Abilify) 6 mg PO BEDTIME 30 days #90 tabs 12/11/21 buspirone 30 mg tablet 30 mg PO BID 30 days #60 tabs 12/11/21 clonidine HCl 0.1 mg tablet 0.1 mg PO BID 30 days #60 tabs 12/11/21 ferrous sulfate 324 mg (65 mg 324 mg PO DAILY 30 days #30 tabs 12/11/21 iron) tablet,delayed release folic acid 1 mg tablet 1 mg PO DAILY 30 days #30 tabs 12/11/21 gabapentin 400 mg capsule 400 mg PO TID 30 days #90 caps 12/11/21 insulin detemir U-100 100 unit/mL 50 unit (0.5 mL) subcut BEDTIME 30 12/11/21 subcutaneous solution days #15 mL lisinopril 10 mg tablet 10 mg PO DAILY 30 days #30 tabs 12/11/21 loratadine 10 mg capsule 10 mg PO DAILY 30 days #30 caps 12/11/21 metformin 500 mg tablet,extended 2,000 mg PO DAILY 30 days #120 tabs 12/11/21 release 24 hr multivitamin 1 tab PO DAILY 30 days #30 tabs 12/11/21 paroxetine HCl 40 mg tablet 40 mg PO DAILY 30 days #30 tabs 12/11/21 trazodone 150 mg tablet 150 mg PO BEDTIME 30 days #30 tabs 12/11/21 Mental Status Exam Mental Status Exam Narrative: Appearance: street clothes, fair hygiene in NAD Behavior:cooperative psychomotor: no agitation or retardation noted Speech:clear, normal rate/rhythm/volume, spontaneous Thought process:linear Thought content: no signs of delusions/psychosis Mood: anxious Affect: normo-intense, non-labile SI:none HI:none VH/AH:none Delusions:none Insight/judgment:fair x 2. Memory/cog: alert, oriented x 3. grossly intact to conversational testing but not formally tested. Data Data Completed and Pending Completed studies during hospitalization [Text1]: 12/07/21 12/07/21 12/07/21 07:16 07:16 07:16 Sodium 139 Potassium 4.5 Chloride 105 Carbon Dioxide 24 Anion Gap 15 BUN 19 H Creatinine 0.77 Estim Creat Clear Calc TNP Estimated GFR > 60 POC Glucose Fasting Glucose 205 H Estimat Average Glucose 203 Hemoglobin A1c % 8.7 Calcium 9.2 Total Bilirubin 0.6 AST 20 ALT 29 Alkaline Phosphatase 118 H Total Protein 6.6 Albumin 3.9 Triglycerides 131 Cholesterol 177 LDL Cholesterol, Calc 110 HDL Cholesterol 41 Vitamin B12 752 Folate > 20.0 TSH 1.31 COVID-19 (TRUPTI) [employer]-19 [email or web address] 12/07/21 12/07/21 12/07/21 09:32 13:05 17:59 Sodium Potassium Chloride Carbon Dioxide Anion Gap BUN Creatinine Estim Creat Clear Calc Estimated GFR POC Glucose 216 H 205 H 182 H Fasting Glucose Estimat Average Glucose Hemoglobin A1c % Calcium Total Bilirubin AST ALT Alkaline Phosphatase Total Protein Albumin Triglycerides Cholesterol LDL Cholesterol, Calc HDL Cholesterol Vitamin B12 Folate TSH COVID-19 (TRUPTI) COVID-19 [email or web address] 12/07/21 12/08/21 12/08/21 20:17 08:57 13:08 Sodium Potassium Chloride Carbon Dioxide Anion Gap BUN Creatinine Estim Creat Clear Calc Estimated GFR POC Glucose 194 H 178 H 152 H Fasting Glucose Estimat Average Glucose Hemoglobin A1c % Calcium Total Bilirubin AST ALT Alkaline Phosphatase Total Protein Albumin Triglycerides Cholesterol LDL Cholesterol, Calc HDL Cholesterol Vitamin B12 Folate TSH COVID-19 (TRUPTI) COVID-19 [email or web address] 12/08/21 12/08/21 12/09/21 17:45 20:28 08:59 Sodium Potassium Chloride Carbon Dioxide Anion Gap BUN Creatinine Estim Creat Clear Calc Estimated GFR POC Glucose 192 H 272 H 152 H Fasting Glucose Estimat Average Glucose Hemoglobin A1c % Calcium Total Bilirubin AST ALT Alkaline Phosphatase Total Protein Albumin Triglycerides Cholesterol LDL Cholesterol, Calc HDL Cholesterol Vitamin B12 Folate TSH COVID-19 (TRUPTI) [employer] 12/09/21 12/09/21 12/09/21 13:20 17:51 20:22 Sodium Potassium Chloride Carbon Dioxide Anion Gap BUN Creatinine Estim Creat Clear Calc Estimated GFR POC Glucose 112 88 248 H Fasting Glucose Estimat Average Glucose Hemoglobin A1c % Calcium Total Bilirubin AST ALT Alkaline Phosphatase Total Protein Albumin Triglycerides Cholesterol LDL Cholesterol, Calc HDL Cholesterol Vitamin B12 Folate TSH COVID-19 (TRUPTI) COVID-19 Clin Com 12/10/21 12/10/21 12/10/21 09:20 12:57 17:47 Sodium Potassium Chloride Carbon Dioxide Anion Gap BUN Creatinine Estim Creat Clear Calc Estimated GFR POC Glucose 153 H 217 H 129 H Fasting Glucose Estimat Average Glucose Hemoglobin A1c % Calcium Total Bilirubin AST ALT Alkaline Phosphatase Total Protein Albumin Triglycerides Cholesterol LDL Cholesterol, Calc HDL Cholesterol Vitamin B12 Folate TSH COVID-19 (TRUPTI) COVID-19 Clin Com 12/10/21 12/11/21 12/11/21 20:19 08:49 13:01 Sodium Potassium Chloride Carbon Dioxide Anion Gap BUN Creatinine Estim Creat Clear Calc Estimated GFR POC Glucose 201 H 141 H 202 H Fasting Glucose Estimat Average Glucose Hemoglobin A1c % Calcium Total Bilirubin AST ALT Alkaline Phosphatase Total Protein Albumin Triglycerides Cholesterol LDL Cholesterol, Calc HDL Cholesterol Vitamin B12 Folate TSH COVID-19 (TRUPTI) COVID-19 Clin Com 12/11/21 12/11/21 12/11/21 14:07 16:51 21:18 Sodium Potassium Chloride Carbon Dioxide Anion Gap BUN Creatinine Estim Creat Clear Calc Estimated GFR POC Glucose 132 H 266 H Fasting Glucose Estimat Average Glucose Hemoglobin A1c % Calcium Total Bilirubin AST ALT Alkaline Phosphatase Total Protein Albumin Triglycerides Cholesterol LDL Cholesterol, Calc HDL Cholesterol Vitamin B12 Folate TSH COVID-19 (TRUPTI) Negative COVID-19 Clin Com See Note 12/12/21 08:40 Sodium Potassium Chloride Carbon Dioxide Anion Gap BUN Creatinine Estim Creat Clear Calc Estimated GFR POC Glucose 145 H Fasting Glucose Estimat Average Glucose Hemoglobin A1c % Calcium Total Bilirubin AST ALT Alkaline Phosphatase Total Protein Albumin Triglycerides Cholesterol LDL Cholesterol, Calc HDL Cholesterol Vitamin B12 Folate TSH COVID-19 (TRUPTI) COVID-19 Clin Com DS: Summary Hospital Course Hospital Course: per 12/07 admission note: Mr. Peter is a 60 year-old male with hx of alcohol dependence, MDD, who self presented to [facility] from [facility]/respite unit from [place] RN reporting suicidal ideation with plan to OD on his medications. Mr. Peter was recently sectioned 35 at [facility] and discharge from this facility on 12/02/2021 after 68 days. He was stepped down to [facility] and after being there for few hours, pt reports he had a panic attack. He was sent to [facility] respite where he continued to endorse suicidal ideation with plan to OD. Utox was negative. BAL neg. On the unit, pt presents somewhat irritable and tired. He reports [facility] has too many residents and is a very small place. He reports not feeling comfortable there. He reports he has not relapsed since he was discharge. He endorses feeling depressed, hopeless, anhedonia. He has not had episodes of what he calls panic attacks which he describes as palpitation, SOB, intense anxious mood. He does report overall anxious mood. He continues to endorse passive suicidal ideation. He reports he was not feeling suicidal while at [facility]. He reports this happened after he was discharged and brought to [facility]. He denies hx of VH/AH. He reports he has been on paxil for some years and thought it worked well for him. He denies previous suicide attempts and states this is the closest I've come to suicide attempt. He reports holding his own medications and contemplating overdose. He reports sleep is good with trazodone. Past Psychiatric History: Inpatient: 09/18/21 [facility], 08/21/21 [facility]; 04/2021 [facility] OP: none Suicide attempts: denies Past medication trials: paxil, clonidine, buspar, gabapentin Medical Evaluation Reviewed: Yes [facility] Medical History?(Updated 12/08/21 @ 09:11 by Radha Tyler) Diabetes mellitus, type 2 H/O: HTN (hypertension) Surgical History?(Updated 12/07/21 @ 13:25 by Arin Herbert NP) H/O hernia repair Precis: Mr. Peter is a 60 year-old male with hx of MDD, alcohol use disorder in early remission. Recently discharged on 12/02/2021 from section 35 after 68 days at [facility]. Stepped down to [facility], had panic attack, which he reports he didn't feel comfortable at this place. He reports suicidal ideation with plan to OD, which he states is close to suicide attempt he has had. He has not relapsed since he was discharged from [facility]. Pt continues to endorse depression, anhedonia, anxious mood, passive SI. We discussed risks, benefits and alternative treatment options. He agrees to continue paxil, as he states it was helpful for him in past, rather than switching at this time to another antidepressant. He agrees to start abilify to boost antidepressant effect. continue clonidine, buspar for anxious mood. 12/07: continue paxil 40mg po daily, may titrate. started abilify 2mg po qhs 12/07. continued gabapentin, clonidine, buspar. 12/08: continue tx plan. 12/09: abilify increased to 4 mg QHS as of 12/09. 12/10: abilify increased to 6 mg as of 12/10.? gabapentin increased from 300 BID to 400 TID as of 12/10.? ativan DCed as of 12/10. 12/11: a bit sleepier today.? discharge to [facility] tomorrow. 12/12: less anxious, more hopeful. DCed to [facility] as per pt request. Time Spent with Patient Time attestation: Total time spent providing and/or coordinating discharge services: Discharge Plan Discharge Patient Disposition: Xfer to Respite Facility Discharge Diagnosis: Major Depressive Disorder, Moderate, Recurrent Referrals: Josafat Barriga (therapist) [Other] - 12/27/21 2:00 pm (Telehealth appointment) Deann Marie (psychiatric provider) [Other] - 12/17/21 2:30 pm (In office appointment) Jason Cohen MD [Primary Care Provider] - 12/20/21 11:30 am Discharge Medications: New ferrous sulfate 324 mg (65 mg iron) Tablet,Delayed Release (Dr/Ec) 324 mg PO DAILY 30 Days Qty: 30 0RF aripiprazole [Abilify] 2 mg Tablet 6 mg PO BEDTIME 30 Days Qty: 90 0RF gabapentin 400 mg Capsule 400 mg PO TID 30 Days Qty: 90 0RF paroxetine HCl 40 mg Tablet 40 mg PO DAILY 30 Days Qty: 30 0RF multivitamin Tablet 1 tab PO DAILY 30 Days Qty: 30 0RF Continued ibuprofen 400 mg Tablet 400 mg PO Q8H PRN (Reason: Pain, Moderate) clonidine HCl 0.1 mg Tablet 0.1 mg PO BID 30 Days Qty: 60 0RF trazodone 150 mg Tablet 150 mg PO BEDTIME 30 Days Qty: 30 0RF buspirone 30 mg Tablet 30 mg PO BID 30 Days Qty: 60 0RF lisinopril 10 mg Tablet 10 mg PO DAILY 30 Days Qty: 30 0RF folic acid 1 mg Tablet 1 mg PO DAILY 30 Days Qty: 30 0RF metformin 500 mg Tablet Extended Release 24 Hr 2,000 mg PO DAILY 30 Days Qty: 120 0RF insulin detemir U-100 100 unit/mL Solution 50 unit SUBCUT BEDTIME 30 Days Qty: 15 0RF loratadine 10 mg Capsule 10 mg PO DAILY 30 Days Qty: 30 0RF Discontinued trazodone 50 mg Tablet 50 mg PO BEDTIME PRN (Reason: Insomnia) hydroxyzine HCl 50 mg Tablet 50 mg PO BEDTIME ferrous sulfate 325 mg 1 tab PO BID gabapentin 300 mg PO BID paroxetine HCl 40 mg PO DAILY lorazepam 1 mg Tablet 1 mg PO TID PRN (Reason: Anxiety) insulin lispro 100 unit/mL Solution 2 - 10 sliding scale dose SUBCUT USEASDIRECTD multivitamin 1 tab PO DAILY Discharge Orders: Discharge Order (Routine); Ordered 12/12/21 Ordered By: Aubrey Wade Diet: diabetic diet Activity on Discharge: As tolerated Stand Alone Forms: Patient Portal Discharge page, Community Support Care Plan Goals: remain safe and sober in the outpatient treatment setting Health Concerns: anemia diabetes hypertension Plan of Treatment: take medications as prescribed, attend appointments as scheduled Assessment: not at imminent risk of harm to self or others Discharge Date/Time: 12/12/21 12:35
== END 2021-12-12 12:35 | DRG 751 ==
PROVIDERS: Social Worker; Admitting Provider Psychiatry & Neurology Psychiatry; PCP Internal Medicine; Visit Provider Psychiatry & Neurology Psychiatry
DX: F33.2 Major depressive disorder, recurrent severe without psychotic features (principal); R45.851 Suicidal ideations; E11.9 Type 2 diabetes mellitus without complications; F10.21 Alcohol dependence, in remission; I10 Essential (primary) hypertension; D64.9 Anemia, unspecified; Z20.822 Contact with and (suspected) exposure to COVID-19; Z88.8 Allergy status to other drugs, medicaments and biological substances; Z79.4 Long term (current) use of insulin; Z79.84 Long term (current) use of oral hypoglycemic drugs; Z79.899 Other long term (current) drug therapy
CPT/HCPCS: 36415; 80053; 80061; 82607; 82746; 82947; 83036; 84443; 87635